=== PATIENT | male | born 1980 ===

== ENCOUNTER 2022-01-25 14:17 | Inpatient (IN) | payer OTHER ==
[~2022-01-25] VITALS: Ht 152.4 cm; Wt 84.3 kg
[2022-01-25 15:01] LABS: Source, Urine Foley catheter
[2022-01-25 15:08] LABS: Alanine Aminotransfer (ALT/SGP 37 U/L (12-78); Albumin, Blood 2.1 g/dL (3.4-5.0); Albumin/Globulin Ratio 0.4 (0.8-1.8); Alk Phos 116 U/L (50-136); Anion Gap 10 mmol/L (6-16); Aspartate Aminotrans (AST/SGOT 111 U/L (12-37); Bilirubin, Total 5.6 mg/dL (0.1-1.0); Blood Urea Nitrogen 12 mg/dL (8-24); Bun/Creatinine Ratio 24.8 (12.0-20.0); CO2, Blood 23 mmol/L (21-32); Chloride, Blood 98 mmol/L (98-108); Creatinine, Blood 0.48 mg/dL (0.60-1.20); Ethanol (Alcohol), Blood, Med <3 mg/dL; Globulin, Blood 4.8 g/dL (2.2-4.0); Glomerular Filtration Rate 133 (60-); Glucose, Blood 106 mg/dL (70-99); Lactate Dehydrogenase (Ld),Bld 523 U/L (100-240); Potassium, Blood 3.9 mmol/L (3.5-5.5); Sodium, Blood 131 mmol/L (136-145); Total Protein, Blood 6.9 g/dL (6.4-8.2)
[2022-01-25 15:14] LABS: Hematocrit 29.3 % (37.0-53.0); Hemoglobin 10.3 g/dL (13.5-17.5); Mean Corpuscular HGB 32.4 pg (26.0-34.0); Mean Corpuscular HGB Conc 35.2 g/dL (31.5-36.5); Mean Corpuscular Volume 92 fL (80-100); Mean Platelet Volume 11.9 fL (9.1-12.4); RDW Coefficient Variation 13.1 % (11.7-14.2); RDW Standard Deviation 44.3 fL (35.1-46.3); Red Blood Cell Count 3.18 M/mm3 (4.30-5.90); White Blood Cell Count 4.89 K/mm3 (4.00-11.30)
[2022-01-25 15:38] LABS: Blood, Urine 2+ (Neg); Color, Urine Amber (P-Yellow); Glucose Qualitative, Urine 1+ (Neg); Ketones, Urine 1+ (Neg); Leukocyte Esterase, Urine 1+ (Neg); Nitrite, Urine Pos (Neg); Protein, Urine 2+ (Neg); Urobilinogen, Urine 4+ (Normal)
[2022-01-25 15:47] LABS: Appearance, Urine Hazy (Clear); Bilirubin, Urine 3+ (Neg)
[2022-01-25 15:48] LABS: BAND PERCENT MAN 40 % (0-8); BASOPHILS ABSOLUTE MAN 0.09 K/mm3 (0.00-0.23); BASOPHILS PERCENT MAN 2 % (0-2); EOSINOPHILS PERCENT MAN 0 % (0-6); LYMPHOCYTES ABSOLUTE MAN 0.29 K/mm3 (0.84-5.20); LYMPHOCYTES PERCENT MAN 6 % (21-46); METAMYELOCYTE ABSOLUTE MAN 0.97 K/mm3 (0.00-0.00); METAMYELOCYTE PERCENT MAN 20 % (0-0); MONOCYTES ABSOLUTE MAN 0.14 K/mm3 (0.16-1.47); MONOCYTES PERCENT MAN 3 % (4-13); MYELOCYTE ABSOLUTE MAN 0.09 K/mm3 (0.00-0.00); MYELOCYTE PERCENT MAN 2 % (0-0); NEUTROPHILS ABSOLUTE MAN 3.27 K/mm3 (1.96-9.15); SEG NEUTROPHILS PERCENT MAN 27 % (41-73); TOTAL CELLS COUNTED 100
[2022-01-25 16:00] LABS: U Amphetamine Screen DETECTED; U Barbituate Screen Not Detected; U Benzodiazapine Screen Not Detected; U Buprenorphine Screen Not Detected; U Cannabinoids Screen Not Detected; U Cocaine Screen Not Detected; U Methadone Screen Not Detected; U Methamphetamine Screen DETECTED; U Opiates Screen Not Detected; U Oxycodone Screen Not Detected; U Phencyclidine Screen Not Detected; U Propoxyphene Screen Not Detected
[2022-01-25 16:08] LABS: Bacteria Mod /hpf; Squamous Epithelial Cells Few /hpf (Few)
[2022-01-25 16:09] LABS: Mucus Heavy (0-Heavy)
[2022-01-25 16:55] LABS: International Normalized Ratio 2.01; Prothrombin Time Results 20.2 Sec (9.7-11.5)
[2022-01-25 17:25] LABS: Influenza A, PCR NEGATIVE (NEGATIVE); Influenza B, PCR NEGATIVE (NEGATIVE); Resp Syncytial Virus, PCR NEGATIVE (NEGATIVE); SARS-Cov-2 (COVID-19) PCR, MMC NEGATIVE (NEGATIVE)
[2022-01-25 17:53] LABS: CPK Creatine Kinase 268 U/L (39-308)
[2022-01-25 18:48] LABS: PCO2 Arterial 31.1 mmHg (35-45); PO2 Arterial 66.5 mmHg (80-100); pH Blood Arterial 7.51 (7.35-7.45)
--- NOTE | 2022-01-25 19:12 | NUR ---
PT ARRIVAL... PT ARRIVED ON THE UNIT AT 1814, THE PT WAS MOANING, GRUNTING AND UNRESPONSIVE. THE PT WOULD REACT TO PAIN BUT NOT OPEN HIS EYES. THE PT WAS IN SINUS TACH IN THE 130'S, BP STABLE. NO EDEMA NOTED ON ASSESSMENT. THE PT WAS ON RA WITH O2 SATS AT 85% THE PT WAS PLACED ON NC AT 6L TO KEEP O2 SATS >90% L/S COARSE T/O DIM IN THE BASES RR IN THE 30'S. BT PRESENT AND HYPOACTIVE ABD IS ROUND, SOFT AND THE PT MOANS AND GUARDS WITH PALPATION. THE PT'S PUPILS EQUAL, NYSTAGMIS NOTED WITH AN UPWARD LEFT GAZE, THE PT WAS NOT TRACKING. SCLERA WERE YELLOW. THE PT'S NEWELL WAS REMOVED AND REPLACED WITH A 16FR TEMP NEWELL, THE PT'S TEMP WAS 102.2. BLEEDING WAS NOTED AT THE UREATHRA AFTER THE NEWELL PLACEMENT. DR. YATES WAS CALLED TO THE BEDSIDE TO ASSESS THE PT, NEW ORDERS GIVEN FOR MAG REPLACEMENT, THE PT'S MAG WAS 1.0. BEDSIDE REPORT GIVEN TO ELY STANLEY.
--- NOTE | 2022-01-25 19:33 | NUR ---
ASSUMED CARE OF PT AT 1900. REPORT RECEIVED AT BEDSIDE. DR YATES IN ROOM. ORDERS RECEIVED BY OFFGOING RN. PT WILL SLIGHTLY OPEN EYES TO TACTILE AND VERBAL STIMULI. PT HAS AN UPWARDS GAZE WHEN EYES ARE OPENED. NO VERBAL RESPONSE. UNSURE IF THIS PT SPEAKS SERBIAN OR GREEK ONLY. DID ASK QUESTIONS AND INTRODUCE IN THIS RN'S LIMITED GREEK. NO REPLY. DID ADMINISTER TYLENOL CA FOR FEVER OF 102.5. FAN PROVIDED. REMOVED BEDDING TO JUST SHEET OVER LOWER HALF. BLOOD CULTURES DONE. UA SENT. WILL REVIEW CHART AND PLAN OF CARE FOR THIS PT.
[2022-01-25 19:43] LABS: Source, Urine Foley catheter
[2022-01-25 20:01] LABS: Appearance, Urine Hazy (Clear); Blood, Urine 5+ (Neg); Color, Urine Yellow (P-Yellow); Glucose Qualitative, Urine Neg (Neg); Ketones, Urine 1+ (Neg); Leukocyte Esterase, Urine 2+ (Neg); Nitrite, Urine Neg (Neg); Protein, Urine 2+ (Neg); Urobilinogen, Urine 3+ (Normal)
[2022-01-25 20:15] LABS: Bilirubin, Urine 2+ (Neg)
[2022-01-25 20:22] LABS: Bacteria Mod /hpf; Hyaline Casts 0-2 /lpf (0-2); Squamous Epithelial Cells Few /hpf (Few)
--- NOTE | 2022-01-25 23:35 | NUR ---
HAVE BEEN ABLE TO TITRATE OXYGEN DOWN TO 2 L/M. DID TRIAL ON ROOM AIR, PT DID DESATURATE TO 83 PERCENT. PLACED PT BACK TO 2 L/M. CURRENTLY AT 98 PERCENT SATURATED. HAVE MEDICATED PT ONCE WITH 25 MCG'S FENTANYL FOR MOANING. NO FURTHER S/S PAIN TO NOTE. REMAINS NON VERBAL.
[2022-01-26 04:30] LABS: Hematocrit 30.2 % (37.0-53.0); Hemoglobin 10.2 g/dL (13.5-17.5); Mean Corpuscular HGB 31.8 pg (26.0-34.0); Mean Corpuscular HGB Conc 33.8 g/dL (31.5-36.5); Mean Corpuscular Volume 94 fL (80-100); RDW Coefficient Variation 13.2 % (11.7-14.2); RDW Standard Deviation 46.3 fL (35.1-46.3); Red Blood Cell Count 3.21 M/mm3 (4.30-5.90); White Blood Cell Count 6.85 K/mm3 (4.00-11.30)
[2022-01-26 04:51] LABS: Magnesium, Blood 2.1 mg/dL (1.6-2.4)
[2022-01-26 04:52] LABS: Albumin, Blood 2.2 g/dL (3.4-5.0); Albumin/Globulin Ratio 0.5 (0.8-1.8); Bilirubin, Total 6.6 mg/dL (0.1-1.0); Bun/Creatinine Ratio 27.8 (12.0-20.0); Calcium, Blood 7.9 mg/dL (8.5-10.1); Creatinine, Blood 0.43 mg/dL (0.60-1.20); Globulin, Blood 4.3 g/dL (2.2-4.0); Potassium, Blood 3.4 mmol/L (3.5-5.5); Total Protein, Blood 6.5 g/dL (6.4-8.2)
[2022-01-26 05:27] LABS: Platelet Count 40 K/mm3 (150-400)
[2022-01-26 05:49] LABS: BAND PERCENT MAN 37 % (0-8); BASOPHILS PERCENT MAN 0 % (0-2); EOSINOPHILS PERCENT MAN 0 % (0-6); LYMPHOCYTES ABSOLUTE MAN 0.95 K/mm3 (0.84-5.20); LYMPHOCYTES PERCENT MAN 14 % (21-46); METAMYELOCYTE ABSOLUTE MAN 0.13 K/mm3 (0.00-0.00); METAMYELOCYTE PERCENT MAN 2 % (0-0); MONOCYTES ABSOLUTE MAN 0.13 K/mm3 (0.16-1.47); MONOCYTES PERCENT MAN 2 % (4-13); MYELOCYTE ABSOLUTE MAN 0.13 K/mm3 (0.00-0.00); MYELOCYTE PERCENT MAN 2 % (0-0); NEUTROPHILS ABSOLUTE MAN 5.48 K/mm3 (1.96-9.15); SEG NEUTROPHILS PERCENT MAN 43 % (41-73); TOTAL CELLS COUNTED 100
--- NOTE | 2022-01-26 07:11 | NUR ---
PT HAS BEGUN TO WAKE UP SOME. WILL OPEN EYES TO HIS NAME BEING CALLED. PT DOES NOT FOLLOW ANY COMMANDS AT THIS TIME. HAS NOT SPOKEN TO STAFF IN ICU OF YET. REPORT GIVEN TO ELY COTA
[2022-01-26 13:15] LABS: Hematocrit 32.5 % (37.0-53.0); Hemoglobin 11.3 g/dL (13.5-17.5); Mean Corpuscular HGB 32.4 pg (26.0-34.0); Mean Corpuscular HGB Conc 34.8 g/dL (31.5-36.5); Mean Corpuscular Volume 93 fL (80-100); RDW Coefficient Variation 13.2 % (11.7-14.2); RDW Standard Deviation 44.9 fL (35.1-46.3); Red Blood Cell Count 3.49 M/mm3 (4.30-5.90); White Blood Cell Count 7.22 K/mm3 (4.00-11.30)
[2022-01-26 14:15] LABS: BAND PERCENT MAN 57 % (0-8); BASOPHILS PERCENT MAN 0 % (0-2); EOSINOPHILS PERCENT MAN 0 % (0-6); LYMPHOCYTES ABSOLUTE MAN 0.93 K/mm3 (0.84-5.20); LYMPHOCYTES PERCENT MAN 13 % (21-46); METAMYELOCYTE ABSOLUTE MAN 0.86 K/mm3 (0.00-0.00); METAMYELOCYTE PERCENT MAN 12 % (0-0); MONOCYTES ABSOLUTE MAN 0.21 K/mm3 (0.16-1.47); MONOCYTES PERCENT MAN 3 % (4-13); NEUTROPHILS ABSOLUTE MAN 5.19 K/mm3 (1.96-9.15); SEG NEUTROPHILS PERCENT MAN 15 % (41-73); TOTAL CELLS COUNTED 100
[2022-01-26 17:24] LABS: Hematocrit 31.4 % (37.0-53.0); Hemoglobin 10.9 g/dL (13.5-17.5); Mean Corpuscular HGB 32.4 pg (26.0-34.0); Mean Corpuscular HGB Conc 34.7 g/dL (31.5-36.5); Mean Corpuscular Volume 94 fL (80-100); RDW Coefficient Variation 13.1 % (11.7-14.2); RDW Standard Deviation 44.8 fL (35.1-46.3); Red Blood Cell Count 3.36 M/mm3 (4.30-5.90); White Blood Cell Count 7.19 K/mm3 (4.00-11.30)
[2022-01-26 17:30] LABS: Mean Platelet Volume 8.8 fL (9.1-12.4)
[2022-01-26 17:40] LABS: Vancomycin, Trough 5.3 ug/mL (5.0-10.0)
[2022-01-26 17:55] LABS: BAND PERCENT MAN 20 % (0-8); BASOPHILS PERCENT MAN 0 % (0-2); EOSINOPHILS ABSOLUTE MAN 0.07 K/mm3 (0.00-0.68); EOSINOPHILS PERCENT MAN 1 % (0-6); LYMPHOCYTES ABSOLUTE MAN 0.79 K/mm3 (0.84-5.20); LYMPHOCYTES PERCENT MAN 11 % (21-46); MONOCYTES ABSOLUTE MAN 0.14 K/mm3 (0.16-1.47); MONOCYTES PERCENT MAN 2 % (4-13); NEUTROPHILS ABSOLUTE MAN 6.18 K/mm3 (1.96-9.15); SEG NEUTROPHILS PERCENT MAN 66 % (41-73); TOTAL CELLS COUNTED 100
[2022-01-26 17:56] LABS: Platelet Count 34 K/mm3 (150-400)
--- NOTE | 2022-01-26 18:56 | NUR ---
SHIFT SUMMARY: NEURO: pt opens eyes to painful stimuli. he move all extremities, but does not follow commands. he moans and will cuss at nursing staff in Ethiopian. No coherent speech. Pt grabs at head while moaning. One dose of 25mcg Fentanyl given for pain with minimal result. One PRN 1mg ativan given and pt stopped thrashing in bed and yelling out as much. CARDIAC: sinus tachy with stable blood pressures. distal pulses intact RESPIRATORY: pt has been on and off 2L NC throughout the day as he tolerates althrough it falls off when pt rolls and thrashes in bed. He desats down to mid 80's while sleeping. GI/: rectal tube placed for lactulose enemas. Clear Char urine out of brown PSYCH/SOCIAL: pt ID taken from [facility] by case management to help identify family.
--- NOTE | 2022-01-26 19:00 | NUR ---
ASSUMED CARE FOR PT AT 1900 SEE ASSESMENT FOR HEAD TO TOE. PT HAS AMS AND HAS ONLY BEEN GRUNTING ANF ROLLING AROUND IN BED WITH INTRODUCTION AND ASSESMENT. PT IS TACHY IN 130S RR >20 SATURATIONS IN LOW 90'S BP WNL. WILL TRY ATIVAN FOR EFFECTIVNESS.
[2022-01-26 19:54] LABS: Platelet Count 43 K/mm3 (150-400)
[2022-01-27 04:10] LABS: Hematocrit 34.2 % (37.0-53.0); Hemoglobin 11.7 g/dL (13.5-17.5); Mean Corpuscular HGB 31.6 pg (26.0-34.0); Mean Corpuscular HGB Conc 34.2 g/dL (31.5-36.5); Mean Corpuscular Volume 92 fL (80-100); RDW Coefficient Variation 12.7 % (11.7-14.2); RDW Standard Deviation 43.3 fL (35.1-46.3); White Blood Cell Count 7.13 K/mm3 (4.00-11.30)
[2022-01-27 04:15] LABS: Mean Platelet Volume 10.5 fL (9.1-12.4)
[2022-01-27 04:16] LABS: Platelet Count 56 K/mm3 (150-400)
[2022-01-27 04:26] LABS: Albumin/Globulin Ratio 0.5 (0.8-1.8); Bilirubin, Total 8.5 mg/dL (0.1-1.0); Bun/Creatinine Ratio 22.1 (12.0-20.0); Calcium, Blood 8.3 mg/dL (8.5-10.1); Creatinine, Blood 0.45 mg/dL (0.60-1.20); Globulin, Blood 4.4 g/dL (2.2-4.0); Total Protein, Blood 6.4 g/dL (6.4-8.2)
[2022-01-27 05:46] LABS: BAND PERCENT MAN 27 % (0-8); BASOPHILS PERCENT MAN 0 % (0-2); EOSINOPHILS PERCENT MAN 0 % (0-6); LYMPHOCYTES ABSOLUTE MAN 0.99 K/mm3 (0.84-5.20); LYMPHOCYTES PERCENT MAN 14 % (21-46); MONOCYTES ABSOLUTE MAN 0.64 K/mm3 (0.16-1.47); MONOCYTES PERCENT MAN 9 % (4-13); NEUTROPHILS ABSOLUTE MAN 5.49 K/mm3 (1.96-9.15); SEG NEUTROPHILS PERCENT MAN 50 % (41-73); TOTAL CELLS COUNTED 100
--- NOTE | 2022-01-27 07:15 | NUR ---
shift summary NO ACUTE OVER NIGHT EVENTS. PT STILL NON VERBAL JUST GRUNTING AND RESTLESS PT WAS CONSTANTLY FLIPPING IN BED AND TANGLING IN LINES SPENT MOST OF SHIFT UNTAGLEING HIM TO KEEP HIM FROM PULLING THINGS OFF OR OUT BY ACCIDENT. PT HAS SLEEP APNEA WITH SO2 DROPPING INTO LOW 80 IF O2 WAS OFF. GAVE ATIVAN AND FENTANYL IN COMBONATION AND PT SEEMED TO REST AFTER
[2022-01-27 17:14] LABS: Vancomycin, Trough 11.6 ug/mL (5.0-10.0)
[2022-01-27 17:33] LABS: International Normalized Ratio 1.95; Prothrombin Time Results 19.6 Sec (9.7-11.5)
--- NOTE | 2022-01-27 18:26 | NUR ---
SUMMARY PT IS NOW OPENING EYE'S TO PAINFUL STIMULUS WHERE HE WASN'T THIS AM. ONLY ANSWERS "NO" TO EVERY QUESTION. PT HAS NOT BEEN RESTLESS TODAY WHAT IT SOUNDS LIKE HE WAS ON [employer]. STILL NOT FOLLOWING COMMANDS. AMMONIA WAS RECHECKED AND NOW LESS THAN 10 AFTER LACTULOSE ENEMA. PT WILL TURN SELF SIDE TO SIDE AND MAINLY STAYS CURLED IN POSITION. CARE MANAGEMENT HAS BEEN IN CONTACT WITH CONSULATE WHO WAS ABLE TO CONTACT A SISTER THAT IS IN [place] AT THE MOMENT. SHE NORMALLY LIVES IN [place] AND PT NORMALLY LIVES THERE WELL. UNSURE HOW HE ENDED UP HERE (SEE EXPERIMENTAL MACHINING LAB MANAGER NOTE). SISTER CALLED IN [employer] AND TURKISH SPEAKING STAFF MEMBER WAS ABLE TO TELL HER HE IS STABLE AND TO CALL BACK IN TOMORROW AROUND [address] MUSE CONSULTED TODAY FOR LUMBAR PUNCTURE. [facility] INFECTIOUS DISEASE WAS CONSULTED AND RECOMMENDED LUMBAR PUNCTURE. AFTER REVIEWING PT RESULTS HE WANTS TO SEE THE PT/INR COME DOWN MORE. DR. HOGAN UPDATED AND ORDERED FFP. AWAITING TYPE AND SCREEN.
--- NOTE | 2022-01-27 22:03 | NUR ---
update 4 units of ffp transfused and lp compleated by Yaya rodriguez CSF sent to lab. pt was hypertensive in 190s but 2mg of versed and 50 mcg of fent given with good results blood pressure is coming down. will continue to moniter
[2022-01-27 22:20] LABS: Automated CSF RBC Count 0.039 M/mm3 (0-0); Automated CSF WBC Count 3.976 K/mm3 (0-5); RBC Count, CSF 39000 /mm3 (0-0); WBC Count, CSF 3976 /mm3 (0-5)
[2022-01-27 22:22] LABS: Automated CSF RBC Count 0.013 M/mm3 (0-0); RBC Count, CSF 13000 /mm3 (0-0)
[2022-01-27 22:35] LABS: Automated CSF WBC Count 11.954 K/mm3 (0-5); WBC Count, CSF 11954 /mm3 (0-5)
[2022-01-27 22:37] LABS: Appearance, CSF Cloudy (Clear); Color, CSF Red (No Color); Glucose, CSF 34 mg/dL (40-70)
[2022-01-27 22:38] LABS: Appearance, CSF Cloudy (Clear); Color, CSF Pink (No Color)
[2022-01-27 23:04] LABS: Lymphocytes, CSF 3 % (40-80); Neutrophils, CSF 97 % (0-6)
[2022-01-27 23:06] LABS: Lymphocytes, CSF 3 % (40-80); Monocytes, CSF 1 % (15-45); Neutrophils, CSF 96 % (0-6)
[2022-01-27 23:36] LABS: Escherichia Coli K1 Not Detected (NOT DETECT); Haemophilus Influenza Not Detected (NOT DETECT); Listeria Monocytogenes Not Detected (NOT DETECT); Neisseria Meningitidis Detected (NOT DETECT)
[2022-01-27 23:37] LABS: Cryptococcus Neoformans/Gattii Not Detected (NOT DETECT); Enterovirus Not Detected (NOT DETECT); Herpes Simplex Virus 1 Not Detected (NOT DETECT); Herpes Simplex Virus 2 Not Detected (NOT DETECT); Human Herpesvirus 6 Not Detected (NOT DETECT); Human Parechovirus Not Detected (NOT DETECT); Streptococcus Agalactiae Not Detected (NOT DETECT); Streptococcus Pneumoniae Not Detected (NOT DETECT); Varicella Zoster Virus Not Detected (NOT DETECT)
[2022-01-28 03:40] LABS: Hematocrit 28.1 % (37.0-53.0); Hemoglobin 9.7 g/dL (13.5-17.5); Mean Corpuscular HGB Conc 34.5 g/dL (31.5-36.5); Mean Corpuscular Volume 93 fL (80-100); RDW Standard Deviation 44.5 fL (35.1-46.3); Red Blood Cell Count 3.03 M/mm3 (4.30-5.90); White Blood Cell Count 6.28 K/mm3 (4.00-11.30)
[2022-01-28 03:46] LABS: Mean Platelet Volume 10.9 fL (9.1-12.4); Platelet Count 52 K/mm3 (150-400)
[2022-01-28 03:58] LABS: Albumin, Blood 2.1 g/dL (3.4-5.0); Albumin/Globulin Ratio 0.5 (0.8-1.8); Bilirubin, Total 7.1 mg/dL (0.1-1.0); Bun/Creatinine Ratio 24.9 (12.0-20.0); Calcium, Blood 8.1 mg/dL (8.5-10.1); Creatinine, Blood 0.36 mg/dL (0.60-1.20); Potassium, Blood 2.9 mmol/L (3.5-5.5); Total Protein, Blood 6.1 g/dL (6.4-8.2)
[2022-01-28 04:31] LABS: BAND PERCENT MAN 11 % (0-8); BASOPHILS PERCENT MAN 0 % (0-2); EOSINOPHILS ABSOLUTE MAN 0.12 K/mm3 (0.00-0.68); EOSINOPHILS PERCENT MAN 2 % (0-6); LYMPHOCYTES ABSOLUTE MAN 0.87 K/mm3 (0.84-5.20); LYMPHOCYTES PERCENT MAN 14 % (21-46); MONOCYTES ABSOLUTE MAN 0.94 K/mm3 (0.16-1.47); MONOCYTES PERCENT MAN 15 % (4-13); NEUTROPHILS ABSOLUTE MAN 4.33 K/mm3 (1.96-9.15); SEG NEUTROPHILS PERCENT MAN 58 % (41-73); TOTAL CELLS COUNTED 100
--- NOTE | 2022-01-28 06:00 | NUR ---
END OF SHIFT SUMMARY PT CONTINUES TO BE ENCEPHALAPATHIC BUT WAS MORE VERBAL TONIGHT. HIS LP WAS COMPLEATED AFTER 4FFP WAS GOVEN. N MENIGITIS WAS RESULTED FROP LP. PAIN AND BLOOD PRESSURE HAS BEEN ONGOING ISSUE FOR THE SHIFT. SPOKE TO RESIDENT 3 TIMES. HIS PAIN MED WERE ADJUSTED AND PRN BP MEDS HYDRALIZEN AND LABETOLOL ORDERED FROM [facility]. DILAUDID .5 Q2 SEEMED TO WORK BEST FOR PAIN HYDALIZEN AND LABETOLOL HAVE BOTH BEEN GIVEN TWICE PT REMAINS HYPERTENSIVE IN 160'S BUT WAS HIGH 190/120. WILL CONTINUE TO MONITOR AND REPORT TO ONCOMING RN
--- NOTE | 2022-01-28 11:46 | NUR ---
REASSESSMENT PT IS RESPONDING TO VOICE, OPENS HIS EYES ON COMMAND AND SHOOK HIS HEAD SLIGHTLY WHEN ASKED IF HE HAD ANY PAIN. HE IS TRYING TO TALK SOME, BUT MOST OF IT IS INCOMPREHENSIBLE TAMAZIGHT OR PERSIAN. DOBHOFF PLACED FOR NUTRITION AND PT TOLERATED WELL. XRAY CONFIRMATION BY DR. MUSE. LUNGS ARE CLEAR, STILL WITH OBSTRUCTIVE SLEEP APNEA TYPE BREATHING ON AND OFF. SINUS TACH IN THE LOW 100S, HYPERTENSIVE STILL. PO METOPROLOL GIVEN NOW THAT DOBHOFF IN PLACE. ABDOMEN MODERATELY DISTENDED, BOWEL TONES HYPOACTIVE. SMEAR OF STOOL WITH BED BATH. NEWELL WITH DARK CARINA URINE. LIGIA, PLATFORM ENGINEER, SPOKE WITH PT'S SISTER LAQUITA AND PROVIDED UPATE USING ROLL INSPECTOR SERVICES.
--- NOTE | 2022-01-28 16:26 | NUR ---
SHIFT SUMMARY PT CONTINUES TO HAVE AN ALTERED MENTAL STATUS. WHEN SPOKEN TO HE OPENS HIS EYES. AT TIMES TODAY HE MADE ATTEMPTS TO TALK. HIS LUNGS ARE CLEAR, ON 3L/NC. SINUS TACH IN THE LOW 100S. HYDRALAZINE GIVEN ONCE FOR HYPERTENSION WELL PO METOPROLOL. NO BM TODAY, ABD REMAINS MODERATELY DISTENDED WITH HYPOACTIVE BT. RO IN PLACE, AWAITING DIETARY'S ORDERS. NEWELL WITH DARK CARINA URINE WITH SEDIMENT. AFEBRILE TODAY. CONTINUING TO MONITOR.
--- NOTE | 2022-01-28 20:00 | NUR ---
ASSUMED CARE OF PT AT 1915. REPORT RECEIVED AT BEDSIDE. PT PRESENTS IN BED. SONOROUS RESPIRATIONS. WHEN AWAKEN ATTEMPTED TO GET PT TO COUGH. HE WOULD JUST NOD HIS HEAD 'YES' AND NOT COUGH. PT ON 3 L/M HAVE DECREASED TO 2 L/M PER NASAL CANNULA. PT MAINTAINS SATURATIONS > 95. PT SWEATY AT THIS TIME. WILL MONITOR. AFEBRILE. WILL REVIEW CHART AND PLAN OF CARE FOR THIS PT.
--- NOTE | 2022-01-28 22:45 | NUR ---
PT MAINTAINS > 90 PERCENT SATURATION ON 2 L/M O2 PER NASAL CANNULA. WAS MEDICATED ONCE WITH 0.5MG DILAUDID FOR MOANING. THIS AFFECTIVE TO REDUCE. PT NON VERBAL WHEN ADDRESSING CONVERSATION. WILL CONTINUE TO MONITOR.
[2022-01-29 04:11] LABS: Hematocrit 29.4 % (37.0-53.0); Hemoglobin 9.8 g/dL (13.5-17.5); Mean Corpuscular HGB 31.6 pg (26.0-34.0); Mean Corpuscular HGB Conc 33.3 g/dL (31.5-36.5); Mean Corpuscular Volume 95 fL (80-100); RDW Coefficient Variation 13.4 % (11.7-14.2); RDW Standard Deviation 46.5 fL (35.1-46.3)
[2022-01-29 04:17] LABS: Mean Platelet Volume 10.5 fL (9.1-12.4); Platelet Count 77 K/mm3 (150-400)
[2022-01-29 04:27] LABS: Bun/Creatinine Ratio 22.9 (12.0-20.0); Calcium, Blood 8.1 mg/dL (8.5-10.1); Creatinine, Blood 1.18 mg/dL (0.60-1.20); Magnesium, Blood 1.4 mg/dL (1.6-2.4); Phosphorus, Blood 3.5 mg/dL (2.5-4.9); Potassium, Blood 3.6 mmol/L (3.5-5.5)
--- NOTE | 2022-01-29 05:40 | NUR ---
PT MOANS OUT AT TIMES. WHEN ASKED IF HE WAS HAVING PAIN HE WOULD SHAKE HIS HEAD "NO". PT WILL MAKE EYE CONTACT BUT DOES NOT VERBALIZE ANY OF HIS NEEDS OR CONCERNS. PT HAS BEEN TURNED Q 2 HOURS. URINE OUTPUT CARINA IN COLOR. O2 AT 2 L/M. PT DOES AWAKEN DURING TURN, AND COUGHS STRONGLY SEVERAL TIMES. RESPIRATORY EFFORTS AND SOUNDS TO AUSCULTATION IMPROVED. PT REMAINS AFEBRILE. TUBE FEEDING CONTINUES. WILL CONTINUE TO MONITOR PT, AND WILL REPORT OFF TO ONCOMING RN.
--- NOTE | 2022-01-29 12:49 | NUR ---
REASSESSMENT PT HAS BEEN ANSWERING A FEW QUESTIONS APPROPRIATELY BUT INCONSISTENTLY REGARDLESS OF BERMUDIAN OR SWEDISH. PT WAS ABLE TO SAY THAT HIS STOMACH IS HURTING, NOT ABLE TO DESCRIBE IT FURTHER. HE NODS YES WHEN ASKED IF HE KNOWS WHERE HE IS, BUT DOES NOT SAY ANYTHING ELSE. BOWEL CARE GIVEN PT HAS NOT HAD A BOWEL MOVEMENT IN A COUPLE DAYS AND HAS BEEN RECEIVING NARCOTICS. WHEN PT'S SISTER CALLED LATER IN THE MORNING PT TALKED TO HER MORE CONSISTENTLY. UNAWARE IF IT WAS APPROPRIATE OR CONFUSED THOUGH BECAUSE IT WAS IN SWEDISH. PT SINCE HAS GONE BACK TO SLEEP. LUGNS ARE CLEAR. ON RA NOW WITH SPO2 95%. SR. NEWELL DRAINING DARK YELLOW URINE. IV FLUIDS STARTED PER DR. HOGAN. PT'S SISTER LAQUITA ALSO UPDATED VIA PHONE WITH ASSISTANCE OF CHINESE LANGUAGE PROFESSOR ZAIRA #[id number].
--- NOTE | 2022-01-29 17:12 | NUR ---
SHIFT SUMMARY PT'S MENTATION HAS CONTINUED TO SLOWLY IMPROVE. HE STILL DOESN'T CONSISTENTLY ANSWER QUESTIONS, LANGUAGE BARRIER COULD BE CONTRIBUTING. HE NODDED YES WHEN ASKED IF HE NEEDED TO HAVE A BM AND HAS BEEN MORE ALERT SO ASSISTED PT TO BSC WITH 2 PERSON ASSIST. PT SAT ON THE COMMODE FOR 5 MINUTES, BUT DID NOT HAVE A BM. ASSISTED PT BACK TO BED. HE ALSO ASKED MULTIPLE TIMES FOR WATER. SINCE PT HAS BEEN MORE ALERT, TRIALLED PT WITH SWABS FIRST, THEN SPOONFULS OF WATER AND PT SWALLOWED BOTH WITHOUT ANY SIGNS OF ASPIRATION. PT WON'T ANSWER WHERE HE IS OR WHAT YEAR IT IS, EVEN WHEN ASKED IN [place]. LUGNS ARE CLEAR, RA. SR, BP STABLE. AFEBRILE. CL CARINA URINE. MEDICATED TWICE FOR PAIN WHEN PT ANSWERED YES TO HAVING PAIN IN HIS ABDOMEN AND HEAD.
--- NOTE | 2022-01-29 19:36 | NUR ---
ASSUMED CARE OF PT, BEDSIDE REPORT RECEIVED. PT IS NOTED TO OPEN EYES AND MAKE EYE CONTACT WITH SPOKEN NAME. FREQUENT MOANING IS NOTED. PT PULLED DOBHOFF FEEDING TUBE OUT PRIOR TO SHIFT CHANGE, PER OFFGOING RN, PT HAS PASSED BEDSIDE SWALLOW EVALUATION, CALL PLACED TO DR DUNCAN, RESIDENT FOLLOWING PT FOR NOC SHIFT, ORDERS OBTAINED ALLOWING TO LEAVE DOBHOFF OUT AND ADVANCE PT TO CLEAR LIQUID DIET.
--- NOTE | 2022-01-30 01:46 | NUR ---
PT WAS MOANING AND RESTLESS, INQUIRED REGARDING PAIN, NAUSEA, BATHROOM, NO AFFIRMATIVE ANSWER PROVIDED BY PT, SPEED WINDER PHONE USED TO INQUIRE REGARDING PT DISCOMFORT, PT DID NOT ANSWER, USED SPEED WINDER TO REASSURE PT THAT HE IS IN THE HOSPITAL IN [place] AND BEING TREATED FOR MENINGITIS, ZOFRAN ADMIN FOR POTENTIAL NAUSEA, WILL CONT TO MONITOR.
--- NOTE | 2022-01-30 01:54 | NUR ---
PT CONTINUES MOANING AND RESTLESS, EYES FULLY OPEN AND MAKING EYE CONTACT, WHEN ASKED IF HE IS HAVING PAIN HE ANSWERS YES, PAIN SCALE PROVIDED IS 8, PT ANSWERS YES TO PAIN IN ABD AND HEAD. DILAUDID ADMIN PER ORDERS, WILL MONITOR.
[2022-01-30 04:25] LABS: Hemoglobin 10.6 g/dL (13.5-17.5); Mean Corpuscular HGB 31.5 pg (26.0-34.0); Mean Corpuscular HGB Conc 34.2 g/dL (31.5-36.5); Mean Corpuscular Volume 92 fL (80-100); RDW Coefficient Variation 13.7 % (11.7-14.2); RDW Standard Deviation 46.4 fL (35.1-46.3); Red Blood Cell Count 3.36 M/mm3 (4.30-5.90); White Blood Cell Count 8.89 K/mm3 (4.00-11.30)
[2022-01-30 04:45] LABS: Bun/Creatinine Ratio 21.3 (12.0-20.0); Calcium, Blood 8.5 mg/dL (8.5-10.1); Creatinine, Blood 1.5 mg/dL (0.60-1.20); Magnesium, Blood 2.3 mg/dL (1.6-2.4); Phosphorus, Blood 1.9 mg/dL (2.5-4.9); Potassium, Blood 3.3 mmol/L (3.5-5.5)
[2022-01-30 05:21] LABS: Mean Platelet Volume 8.3 fL (9.1-12.4)
[2022-01-30 05:23] LABS: Platelet Count 78 K/mm3 (150-400)
--- NOTE | 2022-01-30 05:36 | NUR ---
PT HAS IMPROVED THROUGHOUT NOC IN REGARDS TO LEVEL OF ALERTNESS AND SPEECH CLARITY, OF NOTE HE IS MORE FREQUENTLY USING [place] WORDS AND PHRASES SUCH "I WANT TO GO HOME, PLEASE" SPEECH IS STILL HALTING WITH WORD SEARCHING FREQUENTLY NOTED WELL HAVING CAMBODIAN WORDS/PHRASES MIXED IN. HE HAS BECOME INCREASINGLY RESTLESS AND ATTEMPTS TO ROLL UP OVER BEDRAILS WERE NOTED WITH PT DIFFICULT TO REDIRECT, PT WAS PLACED IN A FOREST VEST FOR SAFETY. HE DID ADMIT TO PAIN FOR WHICH DILAUDID 0.5 MG IV WAS ADMINISTERED X 2 AND FENTANYL 50 MCG IV WAS ADMINISTERED X 1, HE IS NOTED TO HAVE RESPIRATORY RATE DECREASE TO 11-12/MINUTE WHEN UNDISTURBED FOLLOWING LAST DOSE SATS REMAIN HIGH 90S ON ROOM AIR. CONTINUES IN SINUS RHYTHM WITH HYPERTENSION NOTED HOWEVER REMAINS BELOW THRESHHOLD FOR PRN IV ANTIHYPERTENSIVES. PT PULLED DOBHOFF PRIOR TO SHIFT CHANGE, PASSED BEDSIDE SWALLOW EVALUATION, AND HAS TOLERATED WATER THIS SHIFT, WHEN ASKED IF HE WOULD LIKE JELLO OR JUICE, HE HAS DECLINED THROUGHOUT NOC. HE HAS STATED VIA RESEARCH ASSOCIATE QUALITY CONTROL QC PHONE THAT HE FEELS LIKE HE HAS TO HAVE A BOWEL MOVEMENT BUT CANNOT, WAS ASSISTED TO BSC WITH 2 PERSON ASSIST AND GAIT BELT TO GET UP OOB HOWEVER ONE PERSON ASSIST BACK TO BED, PT DID CONTINUE WITHOUT BOWEL MOVEMENT THROUGHOUT NOC. NEWELL REMAINS IN PLACE DRAINING CLEAR CARINA URINE.
[2022-01-30 05:58] LABS: BAND PERCENT MAN 1 % (0-8); BASOPHILS ABSOLUTE MAN 1.77 K/mm3 (0.00-0.23); BASOPHILS PERCENT MAN 20 % (0-2); EOSINOPHILS ABSOLUTE MAN 0.08 K/mm3 (0.00-0.68); EOSINOPHILS PERCENT MAN 1 % (0-6); LYMPHOCYTES ABSOLUTE MAN 0.71 K/mm3 (0.84-5.20); LYMPHOCYTES PERCENT MAN 8 % (21-46); METAMYELOCYTE ABSOLUTE MAN 0.17 K/mm3 (0.00-0.00); METAMYELOCYTE PERCENT MAN 2 % (0-0); MONOCYTES ABSOLUTE MAN 0.97 K/mm3 (0.16-1.47); MONOCYTES PERCENT MAN 11 % (4-13); MYELOCYTE ABSOLUTE MAN 0.35 K/mm3 (0.00-0.00); MYELOCYTE PERCENT MAN 4 % (0-0); NEUTROPHILS ABSOLUTE MAN 4.88 K/mm3 (1.96-9.15); SEG NEUTROPHILS PERCENT MAN 54 % (41-73); TOTAL CELLS COUNTED 100
--- NOTE | 2022-01-30 07:55 | NUR ---
UPDATE: ISOLATION DC SPOKE W/ INFECTION CONTROL, UPDATED ON PT COURSE & ABX GIVEN. PT IS NOW CLEARED TO BE OUT OF ISO. PATIENT CARE TECHNICIAN INSTRUCTOR UPDATED.
--- NOTE | 2022-01-30 11:00 | NUR ---
UPDATE: AM ROUNDS DR FRANCISCO @ BEDSIDE. PT NOW MED STATUS W/O TELE. PT ABLE TO FOLLOW SOME COMMANDS DEMONSTRATED W/ HAND GUESTURES, ABLE TO HOLD BEDRAILS W/ TURNS. FIXTURE REPAIRER FABRICATOR SERVICE USED FOR INITIAL ASSESSMENTS. PT UNABLE TO SPEAK CLEARLY, MUMBLES & MOANS IN RESPONSE. HE DOES STATE HIS BACK AND NECK ARE MOST PAINFUL & IS GENERALLY UNCOMFORTABLE. UNABLE TO STATE WHERE HE IS OR WHY. WILL TRANSFER TO MEDICAL FLOOR ONCE AVAIL.
--- NOTE | 2022-01-30 14:00 | NUR ---
UPDATE: BEHAVIORS PT SPEAKING W/ FRIEND AT BEDSIDE, SPEECH CLEARING & PT BECOMING MORE RESPONSIVE & ALERT. HOWEVER PT ALSO BECOMING MORE AGITATED, ATTEMPTED TO CLIMB OOB. WHEN REDIRECTED BY FRIEND & RN, PT BEGINS TO GROWL & CLENCH HIS JAW, RASING HIS FIST UP IN A HITTING MOTION. BP ELEVATED. PT MEDICATED W/ PAIN MEDS W/ IMPROVEMENT IN BEHAVIORS. BP UNCHANGED & PT MEDICATED W/ PRN LABETALOL, PLACED BACK ON TELE. MONITORING CLOSELY FOR IMPROVEMENT.
--- NOTE | 2022-01-30 15:02 | NUR ---
UPDATE: MEDICAL FILE CLERK PHONE USED TO UPDATE PT ON TRANSFER TO MEDICAL FLOOR, PT REFUSED TO PARTICIPATE. INQUIRED OF NEEDS, PAIN LEVEL, & REMINDED PT THE IMPORTANCE OF STAYING IN THE HOSPITAL UNTIL HE IS WELL ENOUGH TO GO HOME. PT CONTINUES TO REFUSE TO PARTICIPATE, DOES NOT RESPOND, LOOKS FORWARD & PULLS HEAD AWAY FROM PHONE STORE OPERATIONS SPECIALIST.
--- NOTE | 2022-01-30 16:20 | NUR ---
UPDATE: MENTATION IMPROVEMENT PT APPEARS MUCH MORE CALM, W/ SERVICE PROVIDER PT IS ABLE TO STATE HE IS VERY HUNGRY & ASKS TO BORROW "5 DOLLARS TO PAY FOR FOOD". HE CONTINUES TO REPEAT HIMSELF BUT IS MUCH MORE APPROPRIATE & CALM THAN PREVIOUS INTERACTION. PT IS VERY APPRECIATIVE, HOLDING THIS RN's HAND & REPEATING "THANK YOU". HE IS STILL UNABLE TO RECALL WHERE HE IS OR WHY.
--- NOTE | 2022-01-30 17:00 | NUR ---
UPDATE: SPOKE W/ PT's SISTER, LAQUITA, WHO STS THE PT LIVES W/ HIS UNCLE, GERARD. SHE GIVES HER CONSENT FOR GERARD TO RECEIVE INFORMATION HE IS BILINGUAL & WILL UNDERSTAND THE UPDATES MORE FULLY. SHE ALSO GIVES CONSENT FOR THE PT'S BROTHER, DHIRAJ, TO RECEIVE UPDATES.
--- NOTE | 2022-01-30 17:30 | NUR ---
PT FOUND TO BE LAYING HORIZONTAL IN THE BED W/ POWERGLIDE TUBING IN HIS HAND & LARGE AMT OF BLOOD TO SHEET, GOWN, & VEST. POWERGLIDE STAT-LOCK REPLACED, TUBING REPLACED, FULL SITE DRESSING CHANGE. SITE CONTINUES TO FLUSH WELL W/ GOOD BLOOD RETURN. SITE REINFORCED. PT REPOSITIONED ON BED, FOREST RESTRAINT REINFORCED. TRANSFERRED TO MEDICAL FLOOR.
--- NOTE | 2022-01-30 17:39 | NUR ---
CALLED [facility]. SHE STATES PT DIDNT AWAKEN ENOUGH TO SWALLOW APPROP THIS AM. RN TRANSFERRING PT TO [facility] FLOOR , ELKIN MORRIS STATES HE IMPROVED SOME. STATES SHE CLEARED OKAY FOR CLEAR LIQUID AT THIS TIME. JULISAACH TO FOLLOW FURTHER
--- NOTE | 2022-01-30 18:04 | NUR ---
PT REPORT RECEIVED FROM TRANSVERSE ABDOMINAL MUSCLE SURGEON ELKIN. PT RECEIVED TO ROOM AT 1800. CHANGED VEST AND BEDDINGS. NEW POSY PLACED AND TIED. PLACED ON CAMERA. PLACED BACON SKIN LIFTER PHONE IN ROOM TO ASSIST COMMUNICATION. RECEIVEED ASSISTANCE FROM BENGALI SPEAKING LASER SYSTEMS ENGINEER FOR INTRODUCTION, ADVISE TO USE TELEPHONE. WELCOMED TO ROOM. BED IN LOW POSITIOON CALL LITE IN REACH BED ALARM ON FOR SAFETY
--- NOTE | 2022-01-30 18:40 | NUR ---
PT APPEARED TO HAVE QUESTIONS. CALLED WITH LAWN CARE WORKER PHONE. PT CONFUSED ABOUT WHAT ROOM HE WAS IN. NO OTHER CONCERNS NOTED. BED IN LOW POSITION, CALLLITE IN REACH, CALLS APPROP
[2022-01-31 04:49] LABS: BASOPHILS ABSOLUTE AUTO 0.07 K/mm3 (0.00-0.23); BASOPHILS PERCENT AUTO 1 % (0-2); EOSINOPHILS ABSOLUTE AUTO 0.06 K/mm3 (0.00-0.68); EOSINOPHILS PERCENT AUTO 1 % (0-6); Hematocrit 29.7 % (37.0-53.0); Hemoglobin 10.1 g/dL (13.5-17.5); Mean Corpuscular HGB 31.8 pg (26.0-34.0); Mean Corpuscular Volume 93 fL (80-100); NRBC ABSOLUTE 0.02 K/mm3 (0.00-0.02); NRBC Auto 0.2 /100 WBC (0.0-0.2); RDW Coefficient Variation 14.2 % (11.7-14.2); Red Blood Cell Count 3.18 M/mm3 (4.30-5.90); White Blood Cell Count 9.14 K/mm3 (4.00-11.30)
[2022-01-31 04:52] LABS: IMMATURE GRAN ABSOLUTE AUTO 0.38 K/mm3 (0.00-0.10); IMMATURE GRAN PERCENT AUTO 4 % (0-1); LYMPHOCYTES ABSOLUTE AUTO 2.12 K/mm3 (0.84-5.20); LYMPHOCYTES PERCENT AUTO 23 % (21-46); MONOCYTES ABSOLUTE AUTO 1.53 K/mm3 (0.16-1.47); MONOCYTES PERCENT AUTO 17 % (4-13); NEUTROPHILS ABSOLUTE AUTO 4.98 K/mm3 (1.96-9.15); NEUTROPHILS PERCENT AUTO 54 % (41-73); Platelet Count 81 K/mm3 (150-400)
[2022-01-31 05:16] LABS: Albumin/Globulin Ratio 0.5 (0.8-1.8); Bilirubin, Total 8.9 mg/dL (0.1-1.0); Bun/Creatinine Ratio 22.3 (12.0-20.0); Calcium, Blood 8.4 mg/dL (8.5-10.1); Creatinine, Blood 1.39 mg/dL (0.60-1.20); Globulin, Blood 4.3 g/dL (2.2-4.0); Phosphorus, Blood 3.7 mg/dL (2.5-4.9); Potassium, Blood 3.1 mmol/L (3.5-5.5); Total Protein, Blood 6.3 g/dL (6.4-8.2)
--- NOTE | 2022-01-31 18:17 | NUR ---
SHIFT SUMMARY PATIENT IS ALERT BUT NOT ORIENTED. PATIENT HAS HAD NO ACUTE EVENTS THIS SHIFT. PATIENT HAS BEEN IN VEST RESTRAINT THIS SHIFT BECAUSE OF LINES AND SAFETY. DOCUMENTATION DONE. PATIENT HAS HAD NO ACUTE EVENTS THIS SHIFT. VITAL SIGNS REVIEWED. PATIENT HAS NOT COMPLAINED OF PAIN, NAUSEA, VOMITTING OR SOB THIS SHIFT. BED IN LOCKED AND LOWEST POSITION. CALL LIGHT IN PLACE. WILL MONITOR UNTIL SHIFT CHANGE.
[2022-01-31 23:07] LABS: % CD 4 POS. LYMPH. 50.6 % (30.8-58.5); ABSOLUTE CD 4 HELPER 405 /uL (359-1519); BASOS 0 % (Not Estab.); EOS 0 % (Not Estab.); HEMATOCRIT 27.4 % (37.5-51.0); HEMATOLOGY COMMENTS: Note: (.); LYMPHS 9 % (Not Estab.); LYMPHS (ABSOLUTE) 0.8 x10E3/uL (0.7-3.1); MCH 31.7 pg (26.6-33.0); MCHC 36.5 g/dL (31.5-35.7); MCV 87 fL (79-97); METAMYELOCYTES 1 % (0 - 0); MONOCYTES 14 % (Not Estab.); MONOCYTES(ABSOLUTE) 1.3 x10E3/uL (0.1-0.9); MYELOCYTES 1 % (0 - 0); NEUTROPHILS 75 % (Not Estab.); NEUTROPHILS (ABSOLUTE) 6.8 x10E3/uL (1.4-7.0); RBC 3.15 x10E6/uL (4.14-5.80); RDW 12.5 % (11.6-15.4)
[2022-02-01 00:07] LABS: HIV AB/P24 AG SCREEN Non Reactive (Non Reactive)
[2022-02-01 01:07] LABS: HBSAG SCREEN Negative (Negative); HCV AB <0.1 (0.0-0.9); HEP A AB, IGM Negative (Negative); HEP B CORE AB, IGM Negative (Negative)
[2022-02-01 04:53] LABS: BASOPHILS ABSOLUTE AUTO 0.07 K/mm3 (0.00-0.23); BASOPHILS PERCENT AUTO 1 % (0-2); EOSINOPHILS ABSOLUTE AUTO 0.12 K/mm3 (0.00-0.68); EOSINOPHILS PERCENT AUTO 1 % (0-6); Hematocrit 27.3 % (37.0-53.0); Hemoglobin 9.4 g/dL (13.5-17.5); IMMATURE GRAN ABSOLUTE AUTO 0.32 K/mm3 (0.00-0.10); IMMATURE GRAN PERCENT AUTO 3 % (0-1); LYMPHOCYTES ABSOLUTE AUTO 2.44 K/mm3 (0.84-5.20); LYMPHOCYTES PERCENT AUTO 24 % (21-46); MONOCYTES ABSOLUTE AUTO 1.47 K/mm3 (0.16-1.47); MONOCYTES PERCENT AUTO 14 % (4-13); Mean Corpuscular HGB 32.2 pg (26.0-34.0); Mean Corpuscular HGB Conc 34.4 g/dL (31.5-36.5); Mean Corpuscular Volume 94 fL (80-100); NEUTROPHILS ABSOLUTE AUTO 5.98 K/mm3 (1.96-9.15); NEUTROPHILS PERCENT AUTO 57 % (41-73); NRBC ABSOLUTE 0.02 K/mm3 (0.00-0.02); NRBC Auto 0.2 /100 WBC (0.0-0.2); RDW Coefficient Variation 14.9 % (11.7-14.2); Red Blood Cell Count 2.92 M/mm3 (4.30-5.90)
[2022-02-01 04:59] LABS: Mean Platelet Volume 10.9 fL (9.1-12.4)
[2022-02-01 05:00] LABS: Platelet Count 91 K/mm3 (150-400)
[2022-02-01 05:09] LABS: Albumin, Blood 1.9 g/dL (3.4-5.0); Albumin/Globulin Ratio 0.4 (0.8-1.8); Bun/Creatinine Ratio 26.1 (12.0-20.0); Calcium, Blood 8.4 mg/dL (8.5-10.1); Creatinine, Blood 1.15 mg/dL (0.60-1.20); Globulin, Blood 4.3 g/dL (2.2-4.0); Potassium, Blood 3.1 mmol/L (3.5-5.5); Total Protein, Blood 6.2 g/dL (6.4-8.2)
--- NOTE | 2022-02-01 17:18 | NUR ---
PT AOX1 TO DAY WITH INCREASED CONFUSION THE DAY PROGRESSED. PT IS VERY IMPULSIVE PULLING ON HIS POWERGLIDE AND TRYING TO GET OUT OF BED. CONCRETE CRAFTSMAN WAS USED MULTIPLE TIMES WITH LITTLE HELP PT WOULDN'T ANSWER OR TALK AT TIMES. PT CONTINUE TO ESCALATE WITH PULLING AT HIS RESTRAINTS AND DR MILLARD WAS NOTIFIED AND MEDICATION WAS ADDED TO EMAR. BED ALARM AND CAMERA FOR PT SAFETY ARE IN PLACE WILL CONTINUE TO MONITOR.
--- NOTE | 2022-02-02 05:59 | NUR ---
SUMMARY: PT BEGAN SHIFT MUCH MORE CONFUSED W/DIFFICULTY FOLLOWING INSTRUCTION OR CONVEYING NEEDS. HE WAS IMPULSIVE, TUGGING AT LINES/RESTRAINTS AND ATTEMPTED OOB BY SELF AND THREW LEGS OVER RAILS. SHIFT PROGRESSED HE BECAME MORE WAKEFUL, COHERENT AND SENSICAL W/ABILITY TO FOLLOW INSTRUCTION AND SPECIFY NEEDS. HE SPEAKS TANZANIAN PREDOMINANTLY BUT PHONE TRANSLATION WAS UTILISED SUCCESSFULLY. HE APPROPRIATELY SPECIFIED WANTING WATER, A TURKEY SANDWICH AND MILK. PT WAS SAT UPRIGHT W/FOOD SETUP ON TRAY TABLE AND HE WAS ABLE TO FEED HIMSELF W/O S/S ASPIRATION. THIS WAS A LARGE IMPROVEMENT FROM START OF SHIFT WHEN HE COULDN'T COMPREHEND USE OF A STRAW AND ATTEMPTED TO CHEW CAPSULES/MEDS. HE REMAINS IN FOREST VEST RESTRAINT FOR IMPULSIVITY AND AMS BUT MENTATION SEEMS TO BE IMPROVING. HE HAD FREQUENT LOOSE STOOLS SO COLACE WAS HELD. ATTENDS AND LINEN CHANGED FREQUENTLY FOR INCONTINENCE W/CREAM APPLIED TO BUTTOCKS AND TURN SCHEDULE MAINTAINED. ABDO ASCITES AND EDEMA MAY BE WORSE. PITTING EDEMA OBSERVED TO THIGHS AND FLANK REGION. TYLENOL WAS PROVIDED FOR TOLERABLE RELIEF OF ABDO PAIN. RESPS ARE SHALLOW LIKELY R/T ABDO DISTENSION BUT LS ARE CLEAR AND SPO2 WNL ON RA. NO ACUTE CHANGES, VSS AND AFEBRILE. NO ACUTE CHANGES. WCTM AND REPORT TO DAY RN.
[2022-02-02 06:06] LABS: BASOPHILS ABSOLUTE AUTO 0.06 K/mm3 (0.00-0.23); BASOPHILS PERCENT AUTO 1 % (0-2); EOSINOPHILS ABSOLUTE AUTO 0.13 K/mm3 (0.00-0.68); EOSINOPHILS PERCENT AUTO 1 % (0-6); Hematocrit 28.3 % (37.0-53.0); Hemoglobin 9.4 g/dL (13.5-17.5); IMMATURE GRAN PERCENT AUTO 2 % (0-1); LYMPHOCYTES ABSOLUTE AUTO 1.96 K/mm3 (0.84-5.20); LYMPHOCYTES PERCENT AUTO 18 % (21-46); MONOCYTES ABSOLUTE AUTO 1.28 K/mm3 (0.16-1.47); MONOCYTES PERCENT AUTO 12 % (4-13); Mean Corpuscular HGB 31.5 pg (26.0-34.0); Mean Corpuscular HGB Conc 33.2 g/dL (31.5-36.5); Mean Corpuscular Volume 95 fL (80-100); NEUTROPHILS ABSOLUTE AUTO 7.03 K/mm3 (1.96-9.15); NEUTROPHILS PERCENT AUTO 66 % (41-73); RDW Coefficient Variation 15.8 % (11.7-14.2); RDW Standard Deviation 50.7 fL (35.1-46.3); Red Blood Cell Count 2.98 M/mm3 (4.30-5.90); White Blood Cell Count 10.66 K/mm3 (4.00-11.30)
[2022-02-02 06:14] LABS: Albumin, Blood 2.1 g/dL (3.4-5.0); Albumin/Globulin Ratio 0.5 (0.8-1.8); Bun/Creatinine Ratio 18.6 (12.0-20.0); Calcium, Blood 8.8 mg/dL (8.5-10.1); Creatinine, Blood 1.4 mg/dL (0.60-1.20); Globulin, Blood 4.6 g/dL (2.2-4.0); Potassium, Blood 3.1 mmol/L (3.5-5.5); Total Protein, Blood 6.7 g/dL (6.4-8.2)
[2022-02-02 06:15] LABS: Mean Platelet Volume 11.7 fL (9.1-12.4); Platelet Count 73 K/mm3 (150-400)
--- NOTE | 2022-02-02 16:42 | NUR ---
PT AOX1 AND BEEN COMMUNICATING BETTER TODAY. PT HAS NOT BEEN FIGHTING HIS POSE VEST AT THIS TIME. PT IS INCONTENT AND NEEDS CHECK Q2HRS. PT ENCOURAGED TO DRINK AND IS EATING WELL TODAY. BED ALARM IN PLACE WILL CONTINUE TO MONITOR.
--- NOTE | 2022-02-02 18:30 | NUR ---
PT NEEDED CHANGED AND EDEMA ON HIS SIDES AND UPPER LEGS APPEARS TO BE WORSENING. PT WAS ALSO ABLE TO FOLLOW INSTRUCTION AND BREATH NICE DEEP BREATHS TO CHECK FOR LUNG SOUNDS. LOWER LOBES SOUND DIMINISHED BILATERALLY. DR FRANCISCO WAS NOTIFIED AND MEDICATIION HAS BEEN ADDED TO EMAR. WILL CONTINUE TO MONITOR.
--- NOTE | 2022-02-03 04:19 | NUR ---
SUMMARY: PT A/O TO SELF AND "HOSPITAL" BUT IS FORGETFULL TO DATE/EVENT W/ REMINDERS AND REORIENTATION PROVIDED PRN. HE DOESN'T RECALL TO USE CALL LIGHT SO HAS BED ALARM ON AND CAMERA MONITORING IN PROGRESS FOR IMPULSIVITY AND FALL RISK. MENTATION AND STRENGTH SEEM TO BE IMRPOVING BUT UNSTEADY GAIT PERSISTS. HE WAS INCONTINENT MOST OF NOCTE BUT WAS UP TO BSC W/1PA THIS MORNING FOR FORMED BM AND SUCCESSFUL URINAL USE. ATTENDS AND LINEN CHANGED PRN W/CREAM AND POWDER APPLIED TO RASHY SKIN AND MOIST CLAUDIA AREA. COMMUNICATION CAN BE DIFFICULT D/T LANGUAGE BARRIER BUT [employer] AND ELECTRICAL APPLIANCE MECHANIC PHONE UTILIZED WHEN NEEDED. HE'S BEEN ABLE TO SPECIFY MOST NEEDS AND IS PLEASANT/ COOPERATIVE W/CARE. ASCITES PERSISTS AND ABDO REMAINS FIRM, DISTENDED AND TENDER. TYLENOL RECIEVED FOR TOLERABLE RELIEF OF PAIN. BLE/FLANK EDEMA REMAINS 2+/PITTING AND LASIX IS TO COMMENCE THIS AM. HE DENIED COMPLAINTS BUT DID EXPRESS CONCERN RE: A BAG OF QUARTERS THAT COULDN'T BE FOUND AND THERE'S NO INDICATION HE ARRIVED TO HOSPITAL W/THEM. WE DID PROVIDE HIM W/A BIOHAZARD BAG CONTAINING ID'S AND ADDITIONAL CARDS WHICH HE IS NOW KEEPING ON HIM IN BED, WILL ENSURE DAY STAFF ARE AWARE. NO ACUTE CHANGES, VSS/AFEBRILE. WCTM AND REPORT TO DAY RN.
[2022-02-03 06:58] LABS: BASOPHILS ABSOLUTE AUTO 0.08 K/mm3 (0.00-0.23); BASOPHILS PERCENT AUTO 1 % (0-2); EOSINOPHILS ABSOLUTE AUTO 0.08 K/mm3 (0.00-0.68); EOSINOPHILS PERCENT AUTO 1 % (0-6); Hematocrit 28.4 % (37.0-53.0); Hemoglobin 9.5 g/dL (13.5-17.5); IMMATURE GRAN ABSOLUTE AUTO 0.14 K/mm3 (0.00-0.10); IMMATURE GRAN PERCENT AUTO 1 % (0-1); LYMPHOCYTES ABSOLUTE AUTO 1.66 K/mm3 (0.84-5.20); LYMPHOCYTES PERCENT AUTO 12 % (21-46); MONOCYTES PERCENT AUTO 6 % (4-13); Mean Corpuscular HGB 32.1 pg (26.0-34.0); Mean Corpuscular HGB Conc 33.5 g/dL (31.5-36.5); Mean Corpuscular Volume 96 fL (80-100); NEUTROPHILS ABSOLUTE AUTO 11.16 K/mm3 (1.96-9.15); NEUTROPHILS PERCENT AUTO 80 % (41-73); RDW Coefficient Variation 16.3 % (11.7-14.2); RDW Standard Deviation 52.2 fL (35.1-46.3); Red Blood Cell Count 2.96 M/mm3 (4.30-5.90); White Blood Cell Count 14.02 K/mm3 (4.00-11.30)
[2022-02-03 07:03] LABS: Mean Platelet Volume 13.5 fL (9.1-12.4); Platelet Count 84 K/mm3 (150-400)
[2022-02-03 07:08] LABS: Albumin/Globulin Ratio 0.4 (0.8-1.8); Bilirubin, Total 7.6 mg/dL (0.1-1.0); Bun/Creatinine Ratio 19.5 (12.0-20.0); Calcium, Blood 8.5 mg/dL (8.5-10.1); Creatinine, Blood 1.28 mg/dL (0.60-1.20); Globulin, Blood 4.6 g/dL (2.2-4.0); Total Protein, Blood 6.6 g/dL (6.4-8.2)
--- NOTE | 2022-02-03 17:50 | NUR ---
SHIFT SUMMARY: NO ACUTE EVENTS. A&O X 2-3, MAKES NEEDS KNOWN MOST OF THE TIME, BUT STILL HAS PERIODS OF MILD CONFUSION. CARDROOM ATTENDANT PHONE IN USE PRN. DECIDED TO SHAVE HIS HEAD THIS MORNING. HAS SIGNIFICANT EDEMA IN BLE FROM FEET TO FLANK AND ASCITES THAT MAKES IT DIFFICULT TO BREATHE WHEN LYING ON HIS BACK. TOLERATING PO INTAKE, DENIES NAUSEA, JUST ENDORSES FEELING BLOATED. IS AMBULATING IN ROOM AND HALLWAY WITH FWW, GAIT IS STEADY.
--- NOTE | 2022-02-03 21:54 | NUR ---
TEMP 99.6F TWO TYLENOL GIVEN TO ADDRESS TEMP WELL C/O LUQ PAIN 01/25. WILL CONTINUE CLOSE MONITORING
[2022-02-04 05:12] LABS: BASOPHILS ABSOLUTE AUTO 0.09 K/mm3 (0.00-0.23); BASOPHILS PERCENT AUTO 1 % (0-2); EOSINOPHILS ABSOLUTE AUTO 0.16 K/mm3 (0.00-0.68); EOSINOPHILS PERCENT AUTO 1 % (0-6); Hematocrit 26.6 % (37.0-53.0); Hemoglobin 9.1 g/dL (13.5-17.5); IMMATURE GRAN ABSOLUTE AUTO 0.17 K/mm3 (0.00-0.10); IMMATURE GRAN PERCENT AUTO 1 % (0-1); LYMPHOCYTES ABSOLUTE AUTO 2.21 K/mm3 (0.84-5.20); LYMPHOCYTES PERCENT AUTO 16 % (21-46); MONOCYTES PERCENT AUTO 11 % (4-13); Mean Corpuscular HGB 32.7 pg (26.0-34.0); Mean Corpuscular HGB Conc 34.2 g/dL (31.5-36.5); Mean Corpuscular Volume 96 fL (80-100); NEUTROPHILS ABSOLUTE AUTO 10.02 K/mm3 (1.96-9.15); NEUTROPHILS PERCENT AUTO 71 % (41-73); RDW Standard Deviation 55.6 fL (35.1-46.3); Red Blood Cell Count 2.78 M/mm3 (4.30-5.90); White Blood Cell Count 14.15 K/mm3 (4.00-11.30)
[2022-02-04 05:17] LABS: Mean Platelet Volume 12.2 fL (9.1-12.4)
[2022-02-04 05:18] LABS: Platelet Count 84 K/mm3 (150-400)
[2022-02-04 06:00] LABS: Albumin, Blood 1.7 g/dL (3.4-5.0); Albumin/Globulin Ratio 0.4 (0.8-1.8); Bilirubin, Total 6.2 mg/dL (0.1-1.0); Bun/Creatinine Ratio 20.6 (12.0-20.0); Creatinine, Blood 1.31 mg/dL (0.60-1.20); Globulin, Blood 4.7 g/dL (2.2-4.0); Total Protein, Blood 6.4 g/dL (6.4-8.2)
--- NOTE | 2022-02-04 08:20 | NUR ---
PATIENT A&OX3. PLEASANT AND COOPERATIVE WITH CARE. LOW GRADE TEMP OF 99.9 WELL LUQ DISCOMFORT BOTH RESOLVED WITH TYLENOL IN THE EVENING. OOB WITH MINIMAL STAND BY ASSIST. BED ALARM ON AND BED LOCKED IN LOW POSITION. POWER GLIDE IV IN LEFT AC WITH GOOD BLOOD RETURN AND INTACT. ON EPISODE EARLY IN SHIFT WHERE PATIENT EITHER SPILLED THE URINAL OR WAS INCONTINENT. WAS UNABLE TO DETERMINE. URINE WAS YELLOW/CARINA AND CLEAR OVERNIGHT
--- NOTE | 2022-02-04 16:00 | NUR ---
SPOKE TO DR. JACKSON/DR. FRANCISCO BY PHONE TO REPORT BRADYCARDIA AND INABILITY TO GET IV ACCESS. REQUESTED PROVIDER PLACE EJ IV. PROVIDER STATED WILL ORDER PO ABX AND ASKED THAT NURSING TRY IV ACCESS TOMORROW.
--- NOTE | 2022-02-04 19:27 | NUR ---
SHIFT SUMMARY: NO ACUTE EVENTS. STARTED ON IV LASIX AND ALDACTONE. EDEMA 3+ FROM FEET TO FLANK. AMBULATING IN HALLWAY WITH FWW, GAIT STEADY. EATING 100% OF MEALS. MEDICATED FOR PAIN X 1 WITH ADEQUATE RELIEF. NO RESTRAINTS IN USE.
[2022-02-05 05:27] LABS: Bun/Creatinine Ratio 18.9 (12.0-20.0); Creatinine, Blood 0.69 mg/dL (0.60-1.20); Potassium, Blood 3.9 mmol/L (3.5-5.5)
--- NOTE | 2022-02-05 07:32 | NUR ---
PATIENT VOIDING LARGE AMOUNTS OVERNIGHT. ONE EPISODE OF LARGE INCONTINENCE THIS MORNING WHILE PATIENT WAS FAST ASLEEP. LOWER EXTREMITY EDEMA VISIBLY BETTER THIS MORNING. PATIENT IS PLEASANT AND COOPERATIVE WITH CARE. MEDICATED ONCE WITH APAP FOR BILATERAL UPPER QUADRANT PAIN RADIATING DOWN ABDOMEN. PAIN DECREASED TO A TOLERABLE LEVEL, AND PATIENT DENIED NEED FOR FURTHER INTERVENTION OVERNIGHT
--- NOTE | 2022-02-05 18:06 | NUR ---
DAYSHIFT SUMMARY Patient doing well today, complaints of abdominal discomfort, ABD round/tight. BLE +2 pitting edema, feet edematous. IV ABX administred. Vitals stable, no other complaints at this time. Will continue to monitor.
[2022-02-06 07:10] LABS: BASOPHILS PERCENT AUTO 1 % (0-2); EOSINOPHILS PERCENT AUTO 1 % (0-6); Hematocrit 25.3 % (37.0-53.0); Hemoglobin 8.7 g/dL (13.5-17.5); IMMATURE GRAN ABSOLUTE AUTO 0.16 K/mm3 (0.00-0.10); IMMATURE GRAN PERCENT AUTO 2 % (0-1); LYMPHOCYTES ABSOLUTE AUTO 1.81 K/mm3 (0.84-5.20); LYMPHOCYTES PERCENT AUTO 16 % (21-46); MONOCYTES PERCENT AUTO 12 % (4-13); Mean Corpuscular HGB 32.5 pg (26.0-34.0); Mean Corpuscular HGB Conc 34.4 g/dL (31.5-36.5); Mean Corpuscular Volume 94 fL (80-100); NEUTROPHILS ABSOLUTE AUTO 7.55 K/mm3 (1.96-9.15); NEUTROPHILS PERCENT AUTO 69 % (41-73); RDW Coefficient Variation 17.7 % (11.7-14.2); RDW Standard Deviation 59.1 fL (35.1-46.3); Red Blood Cell Count 2.68 M/mm3 (4.30-5.90); White Blood Cell Count 11.02 K/mm3 (4.00-11.30)
[2022-02-06 07:22] LABS: Mean Platelet Volume 10.7 fL (9.1-12.4); Platelet Count 70 K/mm3 (150-400)
[2022-02-06 07:26] LABS: Albumin, Blood 1.6 g/dL (3.4-5.0); Albumin/Globulin Ratio 0.3 (0.8-1.8); Bilirubin, Total 5.6 mg/dL (0.1-1.0); Bun/Creatinine Ratio 19.5 (12.0-20.0); Calcium, Blood 8.2 mg/dL (8.5-10.1); Creatinine, Blood 1.28 mg/dL (0.60-1.20); Globulin, Blood 4.8 g/dL (2.2-4.0); Potassium, Blood 3.9 mmol/L (3.5-5.5); Total Protein, Blood 6.4 g/dL (6.4-8.2)
--- NOTE | 2022-02-06 07:49 | NUR ---
PATIENT SLEPT MUCH BETTER OVERNIGHT WITH ONE TIME DOSE OF BENEDRYL, STILL VOIDING LARGE QUANTITIES OF CLEAR YELLOW/CARINA URINE. I&O NOT ACCURATE PATIENT HAD IN ADDITION TO MEASURABLE URINE, TWO LARGE INCONTINENT VOIDS. ALSO LARGE LOOSE BOWEL MOVEMENT. OF CONCERN, PATIENT HAD FRIEND IN ROOM AT START OF FILENET DEVELOPER WHO HAD BROUGHT IN A CAN OF BEER. THIS WAS REMOVED BY PREVIOUS RN, BUT THIS RN SMELLED ALCOHOL ON THE PATIENT AT TIME HS MEDS WERE PASSED. PATIENT DENIED AND NO EVIDENCE OF ALCOHOL WAS FOUND IN ROOM. PATIENT'S DEMEANOR DID NOT INDICATE THAT HE HAD BEEN DRINKING. COULD HAVE BEEN THE SMELL LEFT BEHIND BY HIS MIGUEL ANGEL
--- NOTE | 2022-02-06 18:04 | NUR ---
DAYSHIFT SUMMARY Patient doing well today, AOx4, vitals stable, good appetite. C/o edema in BLE, & SOB when laying flat in bed. Contacted sister to see if she can help with discharge plans. Sister in [place] right now, unsure if she can help with discharge planning, will call again tomorrow. Provided spainish handouts for patient education, patient receptive to education, had questions about medications. Double Ending Machine Operator at bedside with MD to answer questions. Will continue ABX therapy, 3 days left of 14-day course.
--- NOTE | 2022-02-07 00:24 | NUR ---
02/06/222121 PT LYING IN BED, DENIES ANY DISCOMFORT AT THIS TIME. EDEMA IN LE'S 3+. NO OTHER APPARENT SIGNS OF DISTRESS. CALL LIGHT IS IN REACH.
--- NOTE | 2022-02-07 01:12 | NUR ---
PT LYING IN BED, EYES CLOSED, APPEARS TO BE RESTING. WAKES EASILY TO VERBAL STIMULI. DENIES NEED FOR ANYTHING AT THIS TIME. NO APPARENT SIGNS OF DISTRESS. CALL LIGHT IS IN REACH.
--- NOTE | 2022-02-07 02:46 | NUR ---
PT LYING IN BED, EYES CLOSED, APPEARS TO BE RESTING. BREATHING IS EVEN, UNLABORED. NO APPARENT SIGNS OF DISTRESS. CALL LIGHT IS IN REACH.
--- NOTE | 2022-02-07 04:12 | NUR ---
PT LYING IN BED, EYES CLOSED, APPEARS TO BE RESTING. BREATHING IS EVEN, UNLABORED. NO APPARENT SIGNS OF DISTRESS. CALL LIGHT IS IN REACH.
--- NOTE | 2022-02-07 04:55 | NUR ---
PT IS AAO X 4, ON RA. EDEMA IN LE'S 3+. PT DENIED ANY DISCOMFORT FOR THIS SHIFT.
--- NOTE | 2022-02-07 06:03 | NUR ---
PT LYING IN BED, EYES CLOSED, APPEARS TO BE RESTING. WAKES EASILY TO VERBAL STIMULI. CHANGED DRESSING ON POWER GLIDE, LAB DRAWS DONE. PT REQUESTED AND RECIEVED LARGE APPLEJUICE. NO OTHER APPARENT SIGNS OF DISTRESS. CALL LIGHT IS IN REACH.
[2022-02-07 06:44] LABS: Bun/Creatinine Ratio 18.5 (12.0-20.0); Calcium, Blood 8.3 mg/dL (8.5-10.1); Creatinine, Blood 1.24 mg/dL (0.60-1.20); Potassium, Blood 4.3 mmol/L (3.5-5.5)
--- NOTE | 2022-02-07 15:44 | NUR ---
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 Patient plans to discharge to his friends house, here in [place]. He said unsure if he will try to go to [place] next week, becuase his legs are still edematous. Explained that if he stays here he should find PCP, but if planning to leave the state, find a clinic [facility] to establish care and follow-up appt. Patient will call brother tomorrow, and decide when he will leave [place]. Explained the importance of abstaining from alcohol, if he continues to drink alcohol the fluid in LE, pain in ABD will only get worse. Pt verbalizes understanding. Patient has medication education handouts in [facility]. Patient has 2 days left of ABX therapy, and then he will be ready to discharge.
--- NOTE | 2022-02-07 18:43 | NUR ---
Patient continues to have +2 pitting edema BLE, denies difficulty breathing while in bed or with activity. Sats stable on RA. Patient reported swelling in penis. Patient noted to have severe penile edema, head of penis appears to be edematous & curved. Pt c/o some discomfort when voiding & stated that urine stream sprays up. MD assessed penis & ordered 1 time dose of IV Lasix. Patient also c/o raw fili-anal from diarrhea, barrier cream provided, held bowel meds today. Dry/red rash noted across lower ABD, MD order topical cream. Will continue to monitor edema, and complete IV therapy.
--- NOTE | 2022-02-08 06:13 | NUR ---
SHIFT SUMMARY NO ACUTE EVENTS T/O SHIFT. PT WAS AOX4 AND COOPERATIVE THROUGH T/O SHIFT. PT TOOK A SHOWER EARLY IN THE SHIFT, AND A YELLOWISH FLUID WAS NOTED ON HIS SHEET WHICH COULD HAVE BEEN URINE. PT'S ABDOMEN REMAINS DISTENDED. HE IS INDEPENDENT IN THE ROOM AND SLEPT WELL THROUGH MOST OF THE NIGHT.
[2022-02-08 06:25] LABS: Bun/Creatinine Ratio 17.6 (12.0-20.0); Calcium, Blood 8.1 mg/dL (8.5-10.1); Creatinine, Blood 1.19 mg/dL (0.60-1.20); Potassium, Blood 3.9 mmol/L (3.5-5.5)
--- NOTE | 2022-02-08 19:37 | NUR ---
SHIFT SUMMARY PT AWAKE AT START OF SHIFT, DURING SHIFT REPORT. BELARUSIAN SPEAKING MALE ADMITTED FOR ENCEPALOPATHY WITH LIVER CIRRHOSIS. PT IS INDEPENDENT IN AND OUT IN HALLS USING FWW. PT TO RECEIVE IV ABX UNTIL SUNDAY AND THEN TO D/C. PT TO GO TO FAMILY/FRIENDS HOUSE AND THEN REPORTED HE IS GETTING A BUS TICKET BACK TO [place] WHERE OTHER FAMILY MEMBERS LIVE. LASIX INCREASED TODAY FOR BLE'S EDEMA. PT'S ABD DISTENSION IS SEVERE FROM ASCITES. NO C/O PAIN. PT HAS BEEN PLEASANT. ABLE TO USE PHONE TO CALL FAMILY. CALL LT IN REACH.
--- NOTE | 2022-02-09 04:11 | NUR ---
SHIFT SUMMARY NO ACUTE CHANGES OVERNIGHT. PT IND IN ROOM. AOX4. PT WAS ON PHONE TALKING TO FAMILY OVER THE PHONE AT THE BEGINNING OF SHIFT. PLEASANT AND COOPERATIVE WITH CARE. CALM. INTERACTIVE. NEPALI SPEAKING WITH MINIMAL POLISH UNDERSTANDING. BLE EDEMA STILL PRESENT. POWERGLIDE ON VANI. IV ABX ADMINISTERED. PT REPORTS SOME DIARRHEA DURING THE DAY. HELD STOOL SOFTNERS. VOIDING. ABD STILL DISTENDED WITH SOME RASH. PT REPORTS BACK PAIN OVERNIGHT. TYENOL GIVENX1 AND CALLED DR HUBER FOR MUSCLE SPASM RX FLEXERIL. 1 TIME DOSE ORDERED SEE EMR. PLAN FOR PT TO STAY AND FINISHED IV ABX BEFORE DISCHARGE. PT AGREE TO THIS PLAN. CALL LIGHT WITHIN REACH. WILL PROVIDE REPORT TO ONCOMING NURSE.
[2022-02-09 05:58] LABS: Albumin, Blood 1.6 g/dL (3.4-5.0); Albumin/Globulin Ratio 0.3 (0.8-1.8); Bilirubin, Total 5.3 mg/dL (0.1-1.0); Bun/Creatinine Ratio 16.5 (12.0-20.0); Creatinine, Blood 1.27 mg/dL (0.60-1.20); Globulin, Blood 5.1 g/dL (2.2-4.0); Potassium, Blood 3.9 mmol/L (3.5-5.5); Total Protein, Blood 6.7 g/dL (6.4-8.2)
[2022-02-09 13:24] LABS: Platelet Count 100 K/mm3 (150-400)
[2022-02-09 13:26] LABS: BASOPHILS ABSOLUTE AUTO 0.16 K/mm3 (0.00-0.23); BASOPHILS PERCENT AUTO 1 % (0-2); EOSINOPHILS ABSOLUTE AUTO 0.06 K/mm3 (0.00-0.68); EOSINOPHILS PERCENT AUTO 1 % (0-6); Hematocrit 26.4 % (37.0-53.0); Hemoglobin 9.2 g/dL (13.5-17.5); IMMATURE GRAN ABSOLUTE AUTO 0.17 K/mm3 (0.00-0.10); IMMATURE GRAN PERCENT AUTO 2 % (0-1); LYMPHOCYTES PERCENT AUTO 15 % (21-46); MONOCYTES ABSOLUTE AUTO 1.34 K/mm3 (0.16-1.47); MONOCYTES PERCENT AUTO 12 % (4-13); Mean Corpuscular HGB 33.1 pg (26.0-34.0); Mean Corpuscular HGB Conc 34.8 g/dL (31.5-36.5); Mean Corpuscular Volume 95 fL (80-100); NEUTROPHILS ABSOLUTE AUTO 7.72 K/mm3 (1.96-9.15); NEUTROPHILS PERCENT AUTO 69 % (41-73); RDW Coefficient Variation 17.7 % (11.7-14.2); RDW Standard Deviation 59.2 fL (35.1-46.3); Red Blood Cell Count 2.78 M/mm3 (4.30-5.90); White Blood Cell Count 11.15 K/mm3 (4.00-11.30)
--- NOTE | 2022-02-09 18:31 | NUR ---
SHIFT SUMMARY: PT ALERT AND ORIENTATED. PT HAD SEVERVE PAIN IN HIS NECK THAT RADIATED DOWN HIS LEFT SIDE TOWARDS HIS BACK. PT HAD EPISODES OF INCONTINENCE OF URINE. PT COMMUNICATED THROUGH THE INTERPRETOR PHONE, THAT CURRENT PAIN MEDICATION WAS NOT MANAGING HIS PAIN. DR. MORSE ORDERED A ONE TIME TRAMEDOL 50MG. PT STTED HE HAD 10 OUT OF 10 PAIN AFTER HAVING TRAM[address]. DR[address] LAMAS ORDERED IV DILAUDID Q4H. PT STATED 7 OUT OF 10 PAIN. PT PAIN WAS MANAGED WITH COOLING THERAPY, TRAMADOL AND DILAUDID. PT HAD REATING IN BED WITH CALL LOGHT WITHIN REACH.
[2022-02-10 05:17] LABS: Bun/Creatinine Ratio 18.1 (12.0-20.0); Calcium, Blood 7.8 mg/dL (8.5-10.1); Creatinine, Blood 1.27 mg/dL (0.60-1.20); Potassium, Blood 4.3 mmol/L (3.5-5.5)
[2022-02-10] MEDS ORDERED: Acetaminophen650 M1 PO (10:57)
[2022-02-10] MEDS ORDERED: FURO40 PO (10:58)
[2022-02-10] MEDS ORDERED: METO25ER PO (11:02)
[2022-02-10] MEDS ORDERED: Hydrocortiso453.6 G3 TOP (11:02)
[2022-02-10] MEDS ORDERED: SPIR50 PO (11:03)
[2022-02-10] MEDS ORDERED: TRAM50 PO (11:04)
[2022-02-10] MEDS ORDERED: VISBIOME 112.51 EACH PO (11:04)
--- NOTE | 2022-02-10 13:52 | NUR ---
DISCHARGE SUMMARY PATIENT DISCHARGED HOME. DISCHARGE PAPERWORK REVIEWED WITH PATIENT AND TRANSLATED. ALL QUESTIONS ANSWERED. PRESCRIPTIONS FAXED TO [facility] PER PATIENT AND HARD SCRIPT FOR TRAMADOL GIVEN TO PATIENT. IV D/C'D. BLE WRAPPED WITH NEW HARSHAL WRAP. PATIENT'S FRIEND CAME TO FIELD PARTY MANAGER PATIENT. FRIEND DOES NOT HAVE VEHICLE. CHARGE NURSES NOTIFIED.
== END 2022-02-10 12:50 | disposition home or self-care (01) | DRG 871 ==
LOC: ER 14:17 → EDBD 14:17 → MEDS 17:19 → ICUW 17:19 → MEDS 01-30 17:43
PROVIDERS: Emergency Medicine; Family Medicine; Internal Medicine; Internal Medicine Critical Care Medicine; ADMIT Internal Medicine
PROC: 3E03329 Introduction of Other Anti-infective into Peripheral Vein, Percutaneous Approach (ICD-10-PCS; principal; 2022-01-25)
PROC: HZ2ZZZZ Detoxification Services for Substance Abuse Treatment (ICD-10-PCS; 2022-01-25)
PROC: 30233K1 Transfusion of Nonautologous Frozen Plasma into Peripheral Vein, Percutaneous Approach (ICD-10-PCS; 2022-01-27)
PROC: 30233L1 Transfusion of Nonautologous Fresh Plasma into Peripheral Vein, Percutaneous Approach (ICD-10-PCS; 2022-01-27)
PROC: 009U3ZX Drainage of Spinal Canal, Percutaneous Approach, Diagnostic (ICD-10-PCS; 2022-01-27)
DX: A41.9 Sepsis, unspecified organism (principal); G04.2 Bacterial meningoencephalitis and meningomyelitis, not elsewhere classified; G92.8 Other toxic encephalopathy; J96.01 Acute respiratory failure with hypoxia; J69.0 Pneumonitis due to inhalation of food and vomit; I21.A1 Myocardial infarction type 2; L03.115 Cellulitis of right lower limb; N39.0 Urinary tract infection, site not specified; N17.9 Acute kidney failure, unspecified; K83.09 Other cholangitis; A54.89 Other gonococcal infections; K76.6 Portal hypertension; F15.10 Other stimulant abuse, uncomplicated; Z20.822 Contact with and (suspected) exposure to COVID-19; D69.6 Thrombocytopenia, unspecified; E88.09 Other disorders of plasma-protein metabolism, not elsewhere classified; E86.0 Dehydration; R65.20 Severe sepsis without septic shock; E87.6 Hypokalemia; K70.31 Alcoholic cirrhosis of liver with ascites
CPT/HCPCS: 0241U; 36415; 36430; 36600; 51702; 70450; 71045; 72040; 74177; 76705; 80048; 80053; 80074; 80202; 81001; 82140; 82550; 82803; 82945; 83615; 83735; 83880; 84100; 84132; 84157; 84443; 84484; 85025; 85027; 85610; 86361; 86592; 86900; 86901; 87040; 87070; 87086; 87389; 87483; 89051; 92610; 93005; 93010; 94760; 96361-59; 96365-59; 96366-59; 96367-59; 96375-59; 99285-25; A9270; C1751; G0480; J0133; J0360; J0696; J1170; J1650; J1885; J1940; J2060; J2250; J2405; J2543; J3010; J3370; J3411; J3475; J3480; J7030; J7040; J7042; J7050; J7060; P9047; P9059; Q9967